=== PATIENT | female | born 2000 | race Caucasian/White ===

== ENCOUNTER 2023-09-15 21:33 | Emergency (ER) | payer MEDICAID, SELFPAY ==
--- NOTE | ~2023-09-15 | CT_ITS ---
EXAMINATION: CT ABDOMEN AND PELVIS WITH CONTRAST CLINICAL INFORMATION: Left upper quadrant pain. Left flank pain. COMPARISON: None available. TECHNIQUE: Multidetector volumetric images were obtained from the superior aspect of the liver through the pubic symphysis following administration 85 mL of Omnipaque 350 intravenous contrast. Sagittal and coronal reformatted images were obtained on the technologist's workstation. Oral contrast: No This CT examination was performed using dose optimization techniques as appropriate, variously including the following: *Automated exposure control *Adjustment of mA and/or kV according to patient size (this includes techniques or standardized protocols for targeted exams where dose is matched to indication/reason for exam; i.e. extremities or head) *Use of iterative reconstruction technique DLP: 308 mGy-cm FINDINGS: LUNG BASES: The visualized lung bases are unremarkable. Small left Bochdalek hernia. LIVER, GALLBLADDER, AND BILIARY TREE: The liver is normal in size, shape, and attenuation. No focal hepatic lesion or biliary ductal dilatation is present. Gallbladder is surgically absent. PANCREAS: Unremarkable. SPLEEN: Unremarkable. ADRENAL GLANDS: Unremarkable. KIDNEYS AND URETERS: The kidneys are normal in size, shape, and attenuation. No hydronephrosis, hydroureter, or calculi seen. No perinephric stranding. BLADDER: Unremarkable. GASTROINTESTINAL TRACT: Stomach, small bowel, and colon are normal in caliber. No bowel wall thickening or surrounding inflammatory changes. Appendix is normal. No intraperitoneal free air. Trace intraperitoneal free fluid ABDOMINAL WALL: No significant hernia is appreciated. LYMPH NODES: Normal. VASCULAR: Unremarkable. PELVIC VISCERA: An IUD is appropriately positioned within the uterus. A corpus luteum is present in the right ovary. Ovaries are otherwise unremarkable. Small a volume of intraperitoneal free fluid. OSSEOUS STRUCTURES: No fracture or malalignment. No acute osseous findings. CT/CT abdomen pelvis w IV con IMPRESSION: 1. No acute intra-abdominal or intrapelvic abnormalities. 2. Trace intraperitoneal free fluid, likely physiologic. 3. Appropriately positioned IUD. Fleischner guidelines were followed.
[2023-09-15 21:38] VITALS: BP 103/72; PULSE 81; RESP 18; TEMP 37; O2SAT 99; BMI 22.7
[2023-09-15 21:58] LABS: MANUAL DIFF FLAG NO
[2023-09-15 22:11] LABS: Basophils Absolute Auto 0.1 X10*3/uL (0.0-0.2); Basophils Percent Auto 1.2 % (0-2); Eosinophils Absolute Auto 0.1 X10*3/uL (0.0-0.4); Eosinophils Percent Auto 0.7 % (0-4); Hemoglobin 12.4 g/dl (12.0-16.0); Imm Gran Abs Auto 0.03 X10*3/uL (0.00-0.03); Imm Gran Pct Auto 0.4 % (0.0-0.4); Lymphocytes Absolute Auto 2.5 X10*3/uL (1.2-4.9); Lymphocytes Percent Auto 34.6 % (20-40); Mean Corpuscular HGB Conc 35.4 g/dl (31.0-35.0); Mean Corpuscular Hemoglobin 29.4 pg (27.0-33.0); Mean Corpuscular Volume 82.9 fL (80.0-98.0); Mean Platelet Volume 9.8 fL (9.4-12.3); Monocytes Absolute Auto 0.6 X10*3/uL (0.1-1.2); Monocytes Percent Auto 7.7 % (2-11); Neutrophils Percent Auto 55.4 % (45-73); Platelet Count 261 X10*3/uL (160-400); Red Blood Count 4.22 X10*6/uL (4.20-5.50); Red Cell Distribution Width 11.7 % (11.0-16.0); White Blood Count 7.3 X10*3/uL (4.8-10.8)
[2023-09-15 22:12] LABS: Appearance Urine Clear; Color Urine Yellow; Glucose Urine UA Negative (Negative); Leukocyte Esterase Urine Moderate (2+) (Negative); Nitrite Urine Negative (Negative); UMIC TRIGGER UACC YES; Urine Blood Negative (Negative); Urine Ketones Negative (Negative); Urine Protein Negative (Neg-Trace)
[2023-09-15 22:27] LABS: Alanine Aminotransferase 10 U/L (0-31); Albumin Level 4.8 g/dL (3.5-5.0); Alkaline Phosphatase 48 U/L (39-117); Anion Gap 10 (12-20); Aspartate Amino Transferase 15 U/L (5-31); Bilirubin Direct 0.3 mg/dL (0.0-0.5); Bilirubin Total 0.7 mg/dL (0.0-1.0); Blood Urea Nitrogen 14 mg/dL (9-16); Calcium 9.5 mg/dL (8.4-10.2); Carbon Dioxide 24 mmol/L (22-29); Chloride 107 mmol/L (96-108); Creatinine Clr Calc Pharmacy 82.8; Estimated Glomerular Filt Rate > 60; Glucose Random 102 mg/dL (60-115); Lipase 11 U/L (8-78); Potassium 3.3 mmol/L (3.3-5.1); Sodium 138 mmol/L (135-145); Total Protein 7.9 g/dL (6.5-8.0)
[2023-09-15 22:31] LABS: HCG Quantitative < 2 mIU/mL
[2023-09-15 22:33] LABS: Bacteria Urine 1+ (None Seen); Hyaline Casts Urine 0-2 /LPF (0-2); RBC Urine 0-2 /HPF (0-2); UACC Culture Trigger YES
[2023-09-15 22:44] VITALS: BP 118/57; PULSE 74; RESP 20; TEMP 36.9; O2SAT 99
--- NOTE | 2023-09-15 23:00 | ED_ITS ---
HPI - Abdominal Pain General Chief Complaint: Abdominal Pain Stated Complaint: abd pain Time Seen by Provider: 09/15/23 22:45 Source: patient Mode of arrival: ambulatory Limitations: no limitations History of Present Illness ED Provider: Dr. Reagan Yen HPI narrative: 22-year-old female with a history of asthma, anxiety, chronic lower back pain, IUD, cholecystectomy 07/2020 who presents emergency department for evaluation of left upper quadrant pain x1 week. She states the pain was initially intermittent but is became constant over the last 24 hours. She describes the pain is a constant, pulsating sharp pain which ranges from 7/10 to 10/10. Patient had associated nausea with no vomiting. She had urinary frequency but no dysuria. She states the pain feels similar to her gallbladder pain. She denied fever, chills, rhinorrhea, she has had occasional cough with chest pain, she denied dark tarry stools, bloody stools or diarrhea. She did not take any medications for this pain. The pain got worse while she was at work therefore she came to emergency department for evaluation. Related Data Previous Rx's ?Medication ?Instructions ?Recorded aluminum hydrox-magnesium carb 254 10 ml PO QID PRN dyspepsia #355 mL 09/16/23 mg-237.5 mg/5 mL oral suspension (Gaviscon Extra Strength) omeprazole 20 mg capsule,delayed 20 mg PO DAILY 30 days #30 caps 09/16/23 release Allergies Allergy/AdvReac Type Severity Reaction Status Date / Time Iodinated Contrast Media Allergy Hives Verified 09/16/23 01:09 [Contrast Dye] Review of Systems Review of Systems Yes all other systems are reviewed and are negative PENDING SALE TO [facility] Past Medical History PENDING SALE TO [facility] Narrative: Social history: She denies tobacco use. She occasionally drinks alcohol. She uses edibles as needed for her back pain. Social History Social History Smoked in Last 30 Days: No Use of substances other than those prescribed or required for medical reasons: Yes Substance Use Type: Marijuana Advance Directives: No Advance Directives Information Provided: No Patient : No Physical Exam ED Vital Signs: Vital Signs - 24 hr 09/15/23 21:38 09/15/23 22:44 09/16/23 00:55 Temperature 98.6 F 98.4 F 98.2 F Pulse Rate 81 74 66 Respiratory Rate 18 20 17 Blood Pressure 103/72 118/57 L 109/60 Pulse Oximetry 99 99 100 Oxygen Delivery Method Room Air Room Air Room Air BMI result Body Mass Index 22.7 Vital signs were normal. Exam: General: Awake, alert in no distress Head: Normocephalic, atraumatic EENT: PERRL, Lids normal, sclera normal, conjunctiva normal, nose normal , ears normal, throat without erythema or exudates Neck: Supple, no adenopathy Lung: breath sounds symmetric, no wheezing, rales or rhonchi Chest: symmetric movement, nontender Heart: regular rate and rhythm, normal S1, S2 no murmurs or rubs Abdomen: Mild right lower quadrant, epigastric tenderness, moderate left upper and left lower quadrant tenderness, no rebound, no voluntary or involuntary guarding Back: no vertebral tenderness, moderate left CVA tenderness, no right CVA tenderness Neuro: Awake, alert, oriented, normal speech, Psych: Pleasant, cooperative Medical Decision Making Medical Decision Making MDM Narrative: 22-year-old female with a history of asthma, anxiety, chronic lower back pain, IUD, cholecystectomy 07/2020 who presents emergency department for evaluation of intermittent upper abdominal pain x1 week worse over the last 24 hours-pain is now constant 7 to 10/10 associated with nausea, lower back pain and urinary frequency. Patient states that her pain feels similar to abdominal pain that she had when she had cholecystitis. She did not take any medications for the pain. Vital signs were normal. Physical examination revealed mild right upper and right lower quadrant tenderness with moderate left upper and left lower quadrant tenderness. Patient also had left-sided CVA tenderness. Differential diagnosis: ?Includes but is not limited to pancreatitis, gastritis, splenic infarct, pyelonephritis, renal colic, ureteral stone, urinary tract infection, diverticulitis, related pain, electrolyte abnormalities, anemia Following evaluation was ordered: CBC, CMP, lipase, beta-hCG, urinalysis, CT scan of the abdomen pelvis with IV contrast Patient was initially treated with the following: Toradol 15 mg IV, Zofran 4 mg ODT, normal saline x1 L Course: 23:09 My interpretation patient's laboratory evaluation as follows: WBC normal 7300. Mild anemia with an H&H of 12 and 35. CMP was normal. Lipase was not elevated. Urinalysis 2+ leukocyte esterase, 11-20 WBCs, 1+ bacteria 11-20 squamous cells- consistent with non clean catch specimen. Quantitative beta-hCG was below detectable limits. 01:08 Patient feels better after the above treatment. After patient received CT scan dye she did developed urticaria on her arms and stomach. She had no other concerning symptoms such as shortness of breath, lip, tongue or facial swelling. Patient was treated with Benadryl 25 mg IV. 01:56 CT scan did not reveal any clear cause for the patient's symptoms. The patient has urticarial rash resolved with the IV Benadryl. At this time I suspect the patient's pain is caused by gastritis I did discuss this with her. She was given prescription for Prilosec 20 mg once a day for 1 month and extra-strength Gaviscon 10 cc 4 times a day as needed for pain. I did tell the patient that she can most likely have a CT scan in the future with IV dye but she would need to be premedicated with steroids and Benadryl prior to the procedure. Patient was given printed and verbal instructions and discharged home. Admission/Observation Consideration of admission/observation: Escalation of care including admission/observation considered Lab Data MDM Lab Attestation statement: I reviewed the patient's lab results. 09/15/23 21:51 09/15/23 21:51 Labs: Lab Results 09/15/23 Range/Units 21:51 WBC 7.3 (4.8-10.8) X10*3/uL RBC 4.22 (4.20-5.50) X10*6/uL Hgb 12.4 (12.0-16.0) g/dl Hct 35.0 L (37.0-47.0) % MCV 82.9 (80.0-98.0) fL MCH 29.4 (27.0-33.0) pg MCHC 35.4 H (31.0-35.0) g/dl RDW 11.7 (11.0-16.0) % Plt Count 261 (160-400) X10*3/uL MPV 9.8 (9.4-12.3) fL Immature Gran % (Auto) 0.4 (0.0-0.4) % Neut % (Auto) 55.4 (45-73) % Lymph % (Auto) 34.6 (20-40) % [place] % (Auto) 7.7 (2-11) % Eos % (Auto) 0.7 (0-4) % Baso % (Auto) 1.2 (0-2) % Lymph # (Auto) 2.5 (1.2-4.9) X10*3/uL [place] # (Auto) 0.6 (0.1-1.2) X10*3/uL Eos # (Auto) 0.1 (0.0-0.4) X10*3/uL Baso # (Auto) 0.1 (0.0-0.2) X10*3/uL Abs Immat Gran (auto) 0.03 (0.00-0.03) X10*3/uL Absolute Neuts (auto) 4.0 (2.0-8.3) x10*3/uL Absolute Nucleated RBC 0.000 (0.0-0.012) X10*3/uL Nucleated RBC % (auto) 0.0 (0.0-0.2) /100WBC Sodium 138 (135-145) mmol/L Potassium 3.3 (3.3-5.1) mmol/L Chloride 107 (96-108) mmol/L Carbon Dioxide 24 (22-29) mmol/L Anion Gap 10 L (12-20) BUN 14 (9-16) mg/dL Creatinine 0.79 (0.5-1.4) mg/dL Estim Creat Clear Calc 82.8 Estimated GFR > 60 Random Glucose 102 (60-115) mg/dL Calcium 9.5 (8.4-10.2) mg/dL Total Bilirubin 0.7 (0.0-1.0) mg/dL Direct Bilirubin 0.3 (0.0-0.5) mg/dL AST 15 (5-31) U/L ALT 10 (0-31) U/L Alkaline Phosphatase 48 (39-117) U/L Total Protein 7.9 (6.5-8.0) g/dL Albumin 4.8 (3.5-5.0) g/dL Lipase 11 (8-78) U/L Beta HCG, Quant < 2 mIU/mL Urine Color Yellow Urine Appearance Clear Urine pH 6.0 (5.0-9.0) Ur Specific [place] 1.020 (1.005-1.025) Urine Protein Negative (Neg-Trace) mg/dL Urine Glucose (UA) Negative (Negative) mg/dL Urine Ketones Negative (Negative) mg/dL Urine Blood Negative (Negative) Urine Nitrite Negative (Negative) Ur Leukocyte Esterase Moderate (2+) H (Negative) Urine RBC 0-2 (0-2) /HPF Urine WBC 11-20 H (0-5) /HPF Ur Squamous Epith Cells 11-20 (0-2) /HPF Urine Bacteria 1+ (None Seen) Hyaline Casts 0-2 (0-2) /LPF Urine Yeast Present Radiology Impression Discussion of test interpretation with radiology: I have reviewed the radiologist's reading. Radiologist Impression: CT abdomen pelvis w IV con IMPRESSION: 1. No acute intra-abdominal or intrapelvic abnormalities. 2. Trace intraperitoneal free fluid, likely physiologic. 3. Appropriately positioned IUD. Fleischner guidelines were followed. Dictated By: Mina Lopes MD Independent Historian Clinical information obtained from an independent historian. History obtained from or confirmed by: Other (Significant other) Prescription Management I considered prescription management with: Other (Proton pump inhibitor, antacid) Medications Administered Discontinued Medications Generic Name Dose Route Start Last Admin Trade Name Freq PRN Reason Stop Dose Admin Diphenhydramine HCl 25 mg 09/16/23 01:08 09/16/23 01:18 Diphenhydramine Hcl 50 Mg/Ml Vial IVPUSH 09/16/23 01:09 25 mg ONCE ONE Administration Sodium Chloride 1,000 mls @ 999 mls/hr 09/15/23 23:00 09/16/23 00:55 Ns IV 09/16/23 00:00 Infused .Q1H1M STA Infusion Iohexol 85 ml 09/15/23 23:36 09/15/23 23:44 Iohexol 350 Mg/Ml 100 Ml Infus..Btl IV 09/15/23 23:37 85 ml ONCE ONE Administration Ketorolac Tromethamine 15 mg 09/15/23 23:00 09/15/23 23:12 Ketorolac Tromethamine 15 Mg/Ml Vial IVPUSH 09/15/23 23:01 15 mg ONCE STA Administration Ondansetron HCl 4 mg 09/15/23 23:00 09/15/23 23:12 Ondansetron Hcl 4 Mg/2 Ml Vial IVPUSH 09/15/23 23:01 4 mg ONCE ONE Administration Discharge Plan Discharge Clinical Impression: Abdominal pain, Allergic reaction to contrast dye, Gastritis Patient Disposition: Home, Self-Care Instructions: Gastritis (ED) Additional Instructions: Your laboratory evaluation was unremarkable. Your test was negative. The CT scan of your abdomen pelvis with IV contrast I did not reveal any clear cause for your pain which is reassuring. At this time I suspect that your pain is due to too much acid and inflammation in your stomach (gastritis). Take Prilosec (omeprazole) 20 mg pills, 1 pill once a day for 1 month. ?This medication shuts off your acid production and lets the inflammation in your stomach and esophagus heal. Take extra-strength Gaviscon 10 mL (2 tsp) 4 times a day as needed for abdominal pain. Take Tylenol (acetaminophen) 500 mg pills, 2 pills every 6 hours as needed for pain or fever. Follow-up with your doctor in 2 days. Please return to the emergency department if your symptoms get worse or if you develop any symptoms that are concerning to you. You did have an allergic reaction to CT scan IV contrast dye, you developed urticaria/hives on your skin. You were treated with Benadryl. If the hives come back then take Benadryl (diphenhydramine) 25 mg 4 times a day as needed for rash and itchiness. In the future, if you need a CT scan with IV dye you need to tell the provider that you had hives/urticaria and that you need to be premedicated with steroids and Benadryl prior to any future CT scan. Prescriptions: New Gaviscon Extra Strength 254-237.5 mg/5 mL suspension 10 ml PO QID PRN (Reason: dyspepsia) Qty: 355 0RF omeprazole 20 mg capsule,delayed release(DR/EC) 20 mg PO DAILY 30 Days Qty: 30 0RF Print Language: Latvian
[2023-09-15] MEDS: Ketorolac Tromethamine 15 MG/ML VIAL IVPUSH (23:12)
[2023-09-15] MEDS: 0.9 % Sodium Chloride 1,000 ML 999 ML IV (23:12)
[2023-09-15] MEDS: ondansetron HCL 4 MG/2 ML VIAL IVPUSH (23:12)
[2023-09-15] MEDS: iohexoL 350 MG/ML 100 ML INFUS..BTL 85 ML IV (23:44)
[2023-09-16 00:55] VITALS: BP 109/60; PULSE 66; RESP 17; TEMP 36.8; O2SAT 100
[2023-09-16] MEDS: diphenhydrAMINE HCL 50 MG/ML VIAL 25 MG IVPUSH (01:18)
[2023-09-16 02:18] VITALS: BP 102/52; PULSE 65; RESP 17; TEMP 36.7; O2SAT 98
== END 2023-09-16 02:22 | disposition home or self-care (01) ==
PROVIDERS: Emergency Provider Emergency Medicine Emergency Medical Services; PCP Physician Assistant
DX: R10.12 Left upper quadrant pain (principal); K29.70 Gastritis, unspecified, without bleeding; T50.8X5A Adverse effect of diagnostic agents, initial encounter; Y92.538 Other ambulatory health services establishments as the place of occurrence of the external cause
CPT/HCPCS: 36415; 74177; 80053; 81001; 81003; 82248; 83690; 84702; 85025; 87086; 96361; 96374; 99284; J1200; J1885; J2405; Q9967